=== PATIENT | female | born 1930 | race Caucasian/White ===

== ENCOUNTER 2018-10-21 08:47 | Inpatient (IN) | payer MEDICARE, OTHER ==
[2018-10-21 09:22] LABS: #Eosinphils 0.3 thou/uL (0.0-0.7); #Lymphocytes 1.5 thou/uL (1.20-3.40); #Monocytes 0.6 thou/uL (0.11-0.59); #Neutrophils 5.9 thou/uL (1.40-6.50); %Basophils 0.2 % (0.0-1.0); %Eosinophils 3.8 % (0.0-10.0); %Lymphocytes 18.4 % (21.0-51.0); %Neutrophils 70.6 % (42.0-75.0); Hemoglobin 7.7 g/dL (12.0-16.0); Mean Corpuscular HGB CONC 32.2 g/dL (32.0-36.0); Mean Corpuscular Hemoglobin 30.9 pg (27.0-31.0); Mean Corpuscular Volume 96.1 fL (78.0-98.0); Mean Platelet Volume 6.7 fL (7.4-10.4); Platelet Count 293 thou/uL (130-400); RBC Distribution Width 13.5 % (11.5-14.5); Red Blood Cell (RBC) Count 2.49 mill/uL (4.20-5.40); White Blood Cell (WBC) Count 8.3 thou/uL (4.8-10.8)
--- NOTE | 2018-10-21 09:48 | RAD ---
RADIOGRAPH CHEST 1 VIEW: Date: 10/21/2018 Time: 9:17 a.m. HISTORY: An 88-year-old female with chest pain. COMPARISON: 08/07/2014 FINDINGS: Again noted is the magnification of the cardiac shadow. Mild diffuse pulmonary vascular prominence, perhaps minimally greater than on prior study. Ectasia and tortuosity of the thoracic aorta. No fra nk pulmonary alveolar edema, consolidation, or pneumothorax. Lateral costophrenic angles are sharp. 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 IMPRESSION: 1. Mild pulmonary venous congestion. 2. No evidence of pneumonia. 3. 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 JAZMYN [] POS: TPC
[2018-10-21 09:53] LABS: ALT (SGPT) 9 U/L (8-55); AST (SGOT) 17 U/L (5-34); Albumin 2.9 g/dL (3.4-4.8); Alkaline Phosphatase 85 U/L (40-150); Anion Gap 13 mmol/L (10-20); BUN (Urea Nitrogen) 20 mg/dL (9.8-20.1); Bilirubin, Total 0.3 mg/dL (0.2-1.2); Calc. Creatinine Clearance 0 mL/min (70-130); Calcium 8.6 mg/dL (7.8-10.44); Carbon Dioxide 34 mmol/L (23-31); Chloride 95 mmol/L (98-107); Estimated GFR-MDRD 29; Globulin 3.9 g/dL (2.4-3.5); Glucose 94 mg/dL (83-110); Lipase 12 U/L (8-78); Potassium 4.1 mmol/L (3.5-5.1); Protein, Total 6.8 g/dL (6.0-8.3); Sodium 138 mmol/L (136-145)
[2018-10-21] MEDS ORDERED: Zolpidem Tartrate 5 MG TAB PO PRN (13:11)
[2018-10-21] MEDS ORDERED: Ondansetron PF 4 MG/2 ML Vial IVP PRN (13:11)
[2018-10-21] MEDS ORDERED: Acetaminophen 325 MG TAB PO PRN ×2 (13:11→17:09)
[2018-10-21 13:44] LABS: Troponin I Less than 0.010 ng/mL (< 0.028)
--- NOTE | 2018-10-21 15:28 | PDOC.EVN ---
Event Note - Event Note Event Note: H&P #[id number]
--- NOTE | 2018-10-21 16:06 | HP ---
ADMITTING COMPLAINT: Chest pain. HISTORY OF PRESENT ILLNESS: This is an 88-year-old female, who lives at a half-way facility, presented to the hospital, complaining of chest pain. The patient states that she is being treated at her rehab for nonhealing leg infections and was found to have significant chest pain, so she was brought to the hospital. The patient's first set of troponins was negative. The patient during her evaluation states that she feels better. No other associated symptoms or complaints. No alleviating or aggravating factors. The patient is seen and examined in the ER. No other issues. No family at bedside. All questions answered. REVIEW OF SYSTEMS: All systems reviewed. Pertinent positive in HPI, otherwise negative. PAST MEDICAL HISTORY: Positive for heart failure, hypertension, hyperlipidemia, obesity, sleep apnea. FAMILY HISTORY: Noncontributory. SOCIAL HISTORY: Nonsmoker and nondrinker. HOME MEDICATIONS: See MAR. PHYSICAL EXAMINATION: VITAL SIGNS: Blood pressure 141/55, pulse 74, O2 saturations 94% on room air, respiratory rate of 18, and temperature of 98.5. GENERAL: The patient is lying in bed, in no acute discomfort. HEENT: Pupils are equal, round, reactive to light and accommodation. Extraocular muscles are intact. Oral cavity is moist and pink. NECK: Supple, with mobile and nontender thyroid appreciated. CARDIOVASCULAR: Regular rate and rhythm. S1 and S2. No murmurs, rubs, or gallops appreciated. PULMONARY: Clear to auscultation bilaterally. No rales, rhonchi, or wheezing appreciated. ABDOMEN: Rotund. Positive bowel sounds. Soft, nontender, nondistended. EXTREMITIES: 2+ peripheral pulses in bilateral upper extremities, 1+ pitting edema in bilateral lower extremities. Right lower extremity in bandage was noted with cellulitis and infection. NEUROLOGIC: Cranial nerves 2 through 12 are intact. No loss of motor or sensory function. LABORATORY DATA: Reviewed. IMAGES: Reviewed. ASSESSMENT: 1. Chest pain. 2. Hypertension. 3. Hyperlipidemia. 4. Cardiomyopathy with congestive heart failure. 5. Bilateral lower extremity cellulitis. 6. Obesity. PLAN: At this point in time, we will continue her current medical plan of care. Continue antibiotics and wound care for both her feet. We will continue to trend enzymes. If enzymes are negative by tomorrow, then she can go back to the rehab. Case and plan discussed with the patient at length. She understood and agreed to this plan. Job ID: [id number]
[2018-10-21 16:41] LABS: Troponin I 0.022 ng/mL (< 0.028)
[2018-10-21] MEDS: Nicotine 14 MG PATCH TD SCH (18:40)
[2018-10-22 07:05] LABS: #Eosinphils 0.3 thou/uL (0.0-0.7); #Lymphocytes 1.8 thou/uL (1.20-3.40); #Monocytes 0.5 thou/uL (0.11-0.59); %Basophils 0.7 % (0.0-1.0); %Eosinophils 4.8 % (0.0-10.0); %Monocytes 9.4 % (0.0-10.0); %Neutrophils 53.1 % (42.0-75.0); Hemoglobin 7.1 g/dL (12.0-16.0); Mean Corpuscular HGB CONC 31.6 g/dL (32.0-36.0); Mean Corpuscular Hemoglobin 30.5 pg (27.0-31.0); Mean Corpuscular Volume 96.3 fL (78.0-98.0); Mean Platelet Volume 6.6 fL (7.4-10.4); Platelet Count 239 thou/uL (130-400); RBC Distribution Width 13.5 % (11.5-14.5); Red Blood Cell (RBC) Count 2.32 mill/uL (4.20-5.40); White Blood Cell (WBC) Count 5.6 thou/uL (4.8-10.8)
[2018-10-22 07:24] LABS: Anion Gap 11 mmol/L (10-20); BUN (Urea Nitrogen) 18 mg/dL (9.8-20.1); Calc. Creatinine Clearance 39 mL/min (70-130); Calcium 8.4 mg/dL (7.8-10.44); Carbon Dioxide 35 mmol/L (23-31); Chloride 97 mmol/L (98-107); Estimated GFR-MDRD 35; Glucose 73 mg/dL (83-110); Potassium 3.8 mmol/L (3.5-5.1); Sodium 139 mmol/L (136-145)
[2018-10-22 07:31] LABS: Troponin I 0.026 ng/mL (< 0.028)
[2018-10-22] MEDS ORDERED: Enoxaparin Sodium 40 MG/0.4 ML SYRINGE SC SCH (09:00)
[2018-10-22] MEDS: Bupropion 150 MG SR TAB PO SCH (09:16)
[2018-10-22] MEDS: Aspirin 325 MG TAB PO SCH (09:16)
[2018-10-22] MEDS: Famotidine 20 MG TAB PO SCH (09:16)
[2018-10-22] MEDS: Nicotine 14 MG PATCH TD SCH (13:24)
--- NOTE | 2018-10-22 13:47 | PDOC.HOSPP ---
- Subjective Encounter Date: 10/22/18 Encounter Time: 13:45 Subjective: Patient seen and examined, no new issues. - Objective Vital Signs & Weight: Vital Signs (12 hours) Temp Pulse Resp BP Pulse Ox 10/22/18 12:21 99.5 F 92 18 132/60 96 10/22/18 08:29 98.3 F 89 18 137/64 96 10/22/18 03:06 98.7 F 84 18 142/64 H 92 L Weight Admit Weight 205 lb 12.8 oz Weight 205 lb 12.8 oz Result Diagrams: 10/22/18 06:58 10/22/18 06:58 ROS - Medication Medications: Active Medications Generic Name Dose Route Start Last Admin Trade Name Freq PRN Reason Stop Dose Admin Aspirin 325 mg 10/22/18 09:00 10/22/18 09:16 Aspirin PO 325 mg DAILY AUBREY Administration Bupropion HCl 150 mg 10/22/18 09:00 10/22/18 09:16 Wellbutrin Sr PO 10/25/18 09:01 150 mg DAILY AUBREY Administration Enoxaparin Sodium 40 mg 10/22/18 09:00 10/22/18 09:16 Lovenox SC 40 mg 0900 AUBREY Administration Famotidine 20 mg 10/22/18 09:00 10/22/18 09:16 Pepcid PO 20 mg DAILY AUBREY Administration Nicotine 14 mg 10/21/18 14:00 10/22/18 13:24 Nicoderm Patch TD Not Given Q24HR AUBREY - Exam NAD, awake alert Eye: PERRL, anicteric sclera ENT: normocephalic atraumatic, no oropharyngeal lesions Neck: supple, symmetric, no JVD, no thyromegaly Heart: RRR, no murmur, no gallops, no rubs Respiratory: no wheezes, no rales, no ronchi Gastrointestinal: soft, non-tender, non-distended Hosp A/P (1) Anemia Code(s): D64.9 - ANEMIA, UNSPECIFIED Status: Acute (2) Cellulitis and abscess of leg Code(s): L02.419 - CUTANEOUS ABSCESS OF LIMB, UNSPECIFIED; L03.119 - CELLULITIS OF UNSPECIFIED PART OF LIMB Status: Acute - Plan - check iron levels - labs in AM - PT/OT pending - iron levels pending - case and plan d/w patient and son in law at length, they understood and agreed with this plan.
[2018-10-22] MEDS: Cephalexin 250 MG CAP PO SCH (20:20)
[2018-10-22] MEDS: Bisacodyl 5 MG TAB PO SCH (20:30)
[2018-10-22] MEDS ORDERED: rOPINIRole HCl 2 MG TAB PO SCH (20:45)
[2018-10-23] MEDS: HYDROcodone/Acetaminophen 5/325 mg Tablet PO PRN ×3 (03:38→17:41)
[2018-10-23 05:08] LABS: #Eosinphils 0.2 thou/uL (0.0-0.7); #Lymphocytes 1.6 thou/uL (1.20-3.40); #Monocytes 0.5 thou/uL (0.11-0.59); #Neutrophils 3.9 thou/uL (1.40-6.50); %Basophils 0.5 % (0.0-1.0); %Lymphocytes 25.1 % (21.0-51.0); %Monocytes 8.3 % (0.0-10.0); %Neutrophils 62.2 % (42.0-75.0); Hemoglobin 7.4 g/dL (12.0-16.0); Mean Corpuscular HGB CONC 31.9 g/dL (32.0-36.0); Mean Corpuscular Hemoglobin 30.7 pg (27.0-31.0); Mean Corpuscular Volume 96.5 fL (78.0-98.0); Platelet Count 269 thou/uL (130-400); RBC Distribution Width 13.7 % (11.5-14.5); Red Blood Cell (RBC) Count 2.39 mill/uL (4.20-5.40); White Blood Cell (WBC) Count 6.2 thou/uL (4.8-10.8)
[2018-10-23] MEDS: Levothyroxine Sodium 25 MCG TAB PO SCH (05:11)
[2018-10-23 05:33] LABS: Anion Gap 12 mmol/L (10-20); BUN (Urea Nitrogen) 16 mg/dL (9.8-20.1); Calc. Creatinine Clearance 44 mL/min (70-130); Calcium 8.4 mg/dL (7.8-10.44); Carbon Dioxide 33 mmol/L (23-31); Chloride 98 mmol/L (98-107); Estimated GFR-MDRD 40; Glucose 94 mg/dL (83-110); Iron 21 ug/dL (50-170); Iron Binding Capacity, Total 211 mcg/dL (265-497); Potassium 3.5 mmol/L (3.5-5.1); Sodium 139 mmol/L (136-145)
[2018-10-23] MEDS ORDERED: Metamucil PACK PO PRN (08:45)
[2018-10-23] MEDS ORDERED: Iron, Sodium Ferric Gluconate 250 MG in Sodium Chloride 0.9% 100 ML IVPB SCH (09:00)
[2018-10-23] MEDS: Iron Sucrose Complex 200 MG in Sodium Chloride 0.9% 250 ML 250 ML IVPB SCH (09:59)
[2018-10-23] MEDS: Famotidine 20 MG TAB PO SCH (10:00)
[2018-10-23] MEDS: Cephalexin 250 MG CAP PO SCH ×2 (10:00→19:54)
[2018-10-23] MEDS: Bupropion 150 MG SR TAB PO SCH (10:00)
[2018-10-23] MEDS: Aspirin 325 MG TAB PO SCH (10:00)
[2018-10-23] MEDS: Enoxaparin Sodium 30 MG/0.3 ML SYRINGE SC SCH (10:00)
[2018-10-23] MEDS ORDERED: Non-Formulary Item 1 EACH (Diphenhydramine Hcl [Diphenhydramine Hcl] 25 MG) PO PRN (10:25)
[2018-10-23] MEDS ORDERED: Simethicone Chewable 80 MG TAB PO PRN (10:25)
[2018-10-23] MEDS ORDERED: FLUCONAZOLE 150 MG PO SCH (10:30)
--- NOTE | 2018-10-23 10:31 | PDOC.HOSPP ---
- Subjective Encounter Date: 10/23/18 Encounter Time: 10:29 Subjective: Patient seen and examined, no new issues. - Objective Vital Signs & Weight: Vital Signs (12 hours) Temp Pulse Resp BP Pulse Ox 10/23/18 07:02 98.8 F 99 18 143/63 H 94 L 10/23/18 03:33 98.5 F 116 H 20 174/76 H 94 L Weight Admit Weight 205 lb 12.8 oz Weight 205 lb 12.8 oz I&O: 10/22/18 10/23/18 10/24/18 06:59 06:59 06:59 Intake Total 1390 Output Total 1200 Balance 190 Result Diagrams: 10/23/18 04:17 10/23/18 04:17 ROS - Medication Medications: Active Medications Generic Name Dose Route Start Last Admin Trade Name Freq PRN Reason Stop Dose Admin Hydrocodone Bitart/Acetaminophen 1 tab 10/21/18 13:11 10/23/18 03:38 [place] 5/325 PO 1 tab Q4H PRN Administration Moderate Pain (4-6) Bisacodyl 10 mg 10/22/18 21:00 10/22/18 20:30 Dulcolax PO 10 mg QPM AUBREY Administration Bupropion HCl 150 mg 10/22/18 09:00 10/23/18 10:00 Wellbutrin Sr PO 10/25/18 09:01 150 mg DAILY AUBREY Administration Cephalexin 500 mg 10/22/18 21:00 10/23/18 10:00 Keflex PO 500 mg Q12HR AUBREY Administration Enoxaparin Sodium 30 mg 10/23/18 09:00 10/23/18 10:00 Lovenox SC 30 mg 0900 AUBREY Administration Famotidine 20 mg 10/22/18 09:00 10/23/18 10:00 Pepcid PO 20 mg DAILY AUBREY Administration Iron Sucrose 200 mg/ Sodium 260 mls @ 130 mls/hr 10/23/18 10:00 10/23/18 09: 59 Chloride IVPB 10/24/18 11:59 260 mls 1000 AUBREY Administration Levothyroxine Sodium 25 mcg 10/23/18 06:00 10/23/18 05:11 Synthroid PO 25 mcg 0600 AUBREY Administration Nicotine 14 mg 10/21/18 14:00 10/22/18 13:24 Nicoderm Patch TD Not Given Q24HR AUBREY Quetiapine Fumarate 50 mg 10/22/18 21:00 10/22/18 20:58 Seroquel PO Not Given HS AUBREY Zolpidem Tartrate 5 mg 10/21/18 13:11 10/22/18 20:23 Ambien PO 5 mg HSPRN PRN Administration Insomnia - Exam NAD, awake alert Eye: PERRL, anicteric sclera ENT: normocephalic atraumatic, no oropharyngeal lesions Neck: supple, symmetric, no JVD, no thyromegaly Heart: no murmur, no gallops, no rubs, irregular Respiratory: CTAB, no wheezes, no rales, no ronchi Gastrointestinal: soft, non-tender, non-distended, normal bowel sounds Extremities: 2+ LE edema Extremeties - other findings: erythema B/L LE, hypertrophic skins Hosp A/P (1) Anemia Code(s): D64.9 - ANEMIA, UNSPECIFIED Status: Acute (2) Cellulitis and abscess of leg Code(s): L02.419 - CUTANEOUS ABSCESS OF LIMB, UNSPECIFIED; L03.119 - CELLULITIS OF UNSPECIFIED PART OF LIMB Status: Acute - Plan - will do IV iron 2 doses, q24hrs - started also on feosol + metamucil - occult blood pending - PT/OT pending - case and plan d/w patient and son in law at length, they understood and agreed with this plan.
[2018-10-23] MEDS ORDERED: Amlodipine 5 MG TAB PO SCH (10:45)
[2018-10-23] MEDS ORDERED: Ferrous Sulfate 325 MG TAB PO SCH (10:45)
[2018-10-23] MEDS ORDERED: Aspirin Chewable 81 MG TAB PO SCH (10:45)
[2018-10-23] MEDS ORDERED: Docusate 100 MG CAP PO SCH (10:45)
[2018-10-23] MEDS ORDERED: Metoprolol Tartrate 50 MG TAB PO SCH (10:45)
[2018-10-23] MEDS ORDERED: Furosemide 80 MG TAB PO SCH (11:15)
[2018-10-23] MEDS: Nicotine 14 MG PATCH TD SCH (13:30)
[2018-10-23] MEDS ORDERED: rOPINIRole HCl 2 MG TAB PO SCH (19:30)
[2018-10-23] MEDS: Bisacodyl 5 MG TAB PO SCH (19:53)
[2018-10-23] MEDS: Metoprolol Tartrate 50 MG TAB PO SCH (19:54)
[2018-10-23] MEDS: Docusate 100 MG CAP PO SCH (19:54)
[2018-10-23] MEDS: Latanoprost 0.005% Ophth Soln 2.5 ml Bottle EA EYE SCH (19:56)
[2018-10-24] MEDS: HYDROcodone/Acetaminophen 5/325 mg Tablet PO PRN ×4 (02:04→20:53)
[2018-10-24] MEDS: traMADol HCl 50 MG TAB PO PRN ×2 (02:16→14:18)
[2018-10-24 05:12] LABS: #Eosinphils 0.4 thou/uL (0.0-0.7); #Lymphocytes 1.2 thou/uL (1.20-3.40); #Monocytes 0.5 thou/uL (0.11-0.59); #Neutrophils 3.7 thou/uL (1.40-6.50); %Basophils 0.2 % (0.0-1.0); %Eosinophils 6.4 % (0.0-10.0); %Lymphocytes 20.5 % (21.0-51.0); %Monocytes 9.2 % (0.0-10.0); %Neutrophils 63.7 % (42.0-75.0); Hemoglobin 7.9 g/dL (12.0-16.0); Mean Corpuscular HGB CONC 32.7 g/dL (32.0-36.0); Mean Corpuscular Hemoglobin 31.6 pg (27.0-31.0); Mean Corpuscular Volume 96.7 fL (78.0-98.0); Mean Platelet Volume 6.8 fL (7.4-10.4); Platelet Count 240 thou/uL (130-400); RBC Distribution Width 13.8 % (11.5-14.5); Red Blood Cell (RBC) Count 2.49 mill/uL (4.20-5.40); White Blood Cell (WBC) Count 5.9 thou/uL (4.8-10.8)
[2018-10-24] MEDS: Levothyroxine Sodium 25 MCG TAB PO SCH (05:27)
[2018-10-24 05:30] LABS: Anion Gap 12 mmol/L (10-20); BUN (Urea Nitrogen) 13 mg/dL (9.8-20.1); Calc. Creatinine Clearance 48 mL/min (70-130); Calcium 8.6 mg/dL (7.8-10.44); Carbon Dioxide 31 mmol/L (23-31); Chloride 98 mmol/L (98-107); Estimated GFR-MDRD 43; Glucose 75 mg/dL (83-110); Potassium 3.5 mmol/L (3.5-5.1); Sodium 137 mmol/L (136-145)
[2018-10-24] MEDS: Famotidine 20 MG TAB PO SCH (08:44)
[2018-10-24] MEDS: Ferrous Sulfate 325 MG TAB PO SCH (08:44)
[2018-10-24] MEDS: Furosemide 80 MG TAB PO SCH (08:44)
[2018-10-24] MEDS: Metoprolol Tartrate 50 MG TAB PO SCH ×2 (08:44→20:53)
[2018-10-24] MEDS: Cephalexin 250 MG CAP PO SCH ×2 (08:44→20:52)
[2018-10-24] MEDS: Bupropion 150 MG SR TAB PO SCH (08:44)
[2018-10-24] MEDS: Aspirin Chewable 81 MG TAB PO SCH (08:44)
[2018-10-24] MEDS: Enoxaparin Sodium 30 MG/0.3 ML SYRINGE SC SCH (08:45)
[2018-10-24] MEDS: Docusate 100 MG CAP PO SCH ×2 (08:45→20:52)
[2018-10-24] MEDS ORDERED: Amlodipine 5 MG TAB PO SCH (09:00)
[2018-10-24] MEDS ORDERED: Aspirin Chewable 81 MG TAB PO SCH (09:00)
[2018-10-24] MEDS: Iron Sucrose Complex 200 MG in Sodium Chloride 0.9% 250 ML 250 ML IVPB SCH (11:10)
--- NOTE | 2018-10-24 11:50 | PDOC.HOSPP ---
- Subjective Encounter Date: 10/24/18 Encounter Time: 11:30 Subjective: f/u for LE edema and chronic venous stasis with dermatitis and cellulitis. States R foot is swollen and painful x 4 weeks after blunt force injury. Receiving IV Iron infusion currently. - Objective Vital Signs & Weight: Vital Signs (12 hours) Temp Pulse Resp BP BP Pulse Ox 10/24/18 11:08 98.8 F 67 18 134/67 95 10/24/18 07:17 98.3 F 79 18 135/60 94 L 10/24/18 02:58 98.0 F 86 18 147/70 H 92 L Weight Admit Weight 205 lb 12.8 oz Weight 205 lb 12.8 oz I&O: 10/23/18 10/24/18 10/25/18 06:59 06:59 06:59 Intake Total 1390 1600 Output Total 1200 1950 Balance 190 -350 Result Diagrams: 10/24/18 05:00 10/24/18 05:00 Additional Labs: Microbiology 10/24/18 08:54 Stool Stool Occult Blood (GIANCARLO) - Final Laboratory Tests 10/21/18 10/21/18 10/22/18 09:08 09:08 06:58 Hgb 7.7 L Creatinine 1.43 H Iron TIBC % Saturation Ferritin B-Natriuretic Peptide 213.0 H 10/22/18 10/23/18 10/23/18 06:58 04:17 04:17 Hgb 7.1 L Creatinine 1.27 H Iron 21 L TIBC 211 L % Saturation 10 L Ferritin 300.85 H B-Natriuretic Peptide 10/23/18 04:17 Hgb 7.4 L Creatinine Iron TIBC % Saturation Ferritin B-Natriuretic Peptide Radiology Reviewed by me: Yes (EF - 55-60%, mod elevated pulm pressure, poor study) EKG Reviewed by me: Yes (Tele - SR) ROS - Medication Medications: Active Medications Generic Name Dose Route Start Last Admin Trade Name Freq PRN Reason Stop Dose Admin Hydrocodone Bitart/Acetaminophen 1 tab 10/21/18 13:11 10/24/18 08:52 [place] 5/325 PO 1 tab Q4H PRN Administration Moderate Pain (4-6) Aspirin 81 mg 10/24/18 09:00 10/24/18 08:44 Aspirin Chewable PO 81 mg QAM AUBREY Administration Bisacodyl 10 mg 10/22/18 21:00 10/23/18 19:53 Dulcolax PO 10 mg QPM AUBREY Administration Bupropion HCl 150 mg 10/22/18 09:00 10/24/18 08:44 Wellbutrin Sr PO 10/25/18 09:01 150 mg DAILY AUBREY Administration Cephalexin 500 mg 10/22/18 21:00 10/24/18 08:44 Keflex PO 500 mg Q12HR AUBREY Administration Docusate Sodium 100 mg 10/23/18 21:00 10/24/18 08:45 Colace PO 100 mg BID AUBREY Administration Enoxaparin Sodium 30 mg 10/23/18 09:00 10/24/18 08:45 Lovenox SC 30 mg 0900 [facility] Administration Famotidine 20 mg 10/22/18 09:00 10/24/18 08:44 Pepcid PO 20 mg DAILY AUBREY Administration Ferrous Sulfate 325 mg 10/24/18 08:00 10/24/18 08:44 Feosol PO 325 mg QAM-WM [facility] Administration Furosemide 80 mg 10/24/18 09:00 10/24/18 08:44 Lasix PO 80 mg DAILY [facility] Administration Iron Sucrose 200 mg/ Sodium 260 mls @ 130 mls/hr 10/23/18 10:00 10/24/18 11: 10 Chloride IVPB 10/24/18 11:59 260 mls 1000 [facility] Administration Latanoprost 1 drop 10/23/18 21:00 10/23/18 19:56 Xalatan 0.005% Ophth Soln EA EYE 1 drop HS AUBREY Administration Levothyroxine Sodium 25 mcg 10/23/18 06:00 10/24/18 05:27 Synthroid PO 25 mcg 0600 [facility] Administration Metoprolol Tartrate 50 mg 10/23/18 21:00 10/24/18 08:44 Lopressor PO 50 mg BID AUBREY Administration Nicotine 14 mg 10/21/18 14:00 10/23/18 13:30 Nicoderm Patch TD Not Given Q24HR [facility] Pantoprazole Sodium 40 mg 10/24/18 09:00 10/24/18 08:45 Protonix PO 40 mg DAILY AUBREY Administration Psyllium Hydrophilic Mucilloid 1 pk 10/23/18 08:45 10/23/18 15:23 Metamucil PO 1 pk DAILY PRN Administration constipation Quetiapine Fumarate 50 mg 10/22/18 21:00 10/23/18 19:54 Seroquel PO 50 mg HS AUBREY Administration Raloxifene HCl 60 mg 10/24/18 09:00 10/24/18 08:44 Evista PO 60 mg DAILY AUBREY Administration Tramadol HCl 50 mg 10/23/18 10:25 10/24/18 02:16 Ultram PO 50 mg TID PRN Administration Pain Zolpidem Tartrate 5 mg 10/21/18 13:11 10/22/18 20:23 Ambien PO 5 mg HSPRN PRN Administration Insomnia - Exam NAD, awake alert Eye: PERRL, anicteric sclera ENT: normocephalic atraumatic, no oropharyngeal lesions Neck: supple, symmetric, no JVD, no thyromegaly, no lymphadenopathy Heart: RRR, no murmur, no gallops, no rubs, normal peripheral pulses Respiratory: CTAB, no wheezes, no rales, no ronchi Gastrointestinal: soft, non-tender, non-distended, normal bowel sounds Extremities: 2+ LE edema Extremeties - other findings: prominent LE edema bilat, R foot with dark discoloration, skin peeling Neurological: CN's grossly intact, normal sensation to touch, no new deficit Musculoskeletal: generalized weakness Psychiatric: normal affect, normal behavior, A&O x 3 Hosp A/P (1) Leg edema Code(s): R60.0 - LOCALIZED EDEMA Status: Chronic Plan: Suspect multifactorial including iatrogenic influence from Norvasc, d/c Norvasc (2) Iron deficiency anemia Code(s): D50.9 - IRON DEFICIENCY ANEMIA, UNSPECIFIED Status: Chronic Qualifiers: Iron deficiency anemia type: inadequate dietary iron intake Qualified Code( s): D50.8 - Other iron deficiency anemias Plan: Continue IV Iron infusion today, continue Feosol (3) Cellulitis and abscess of leg Code(s): L02.419 - CUTANEOUS ABSCESS OF LIMB, UNSPECIFIED; L03.119 - CELLULITIS OF UNSPECIFIED PART OF LIMB Status: Acute Plan: Suspicion for abscess R foot, check MRI today, continue Keflex, await MRI results, may need surgical evaluation (4) Physical deconditioning Code(s): R53.81 - OTHER MALAISE Status: Chronic Plan: PT for mobilization - Plan continue antibiotics, PT/OT, social work case manager Stable overall Continue WCT for local care of chronic LE ulcers D/C Norvasc due to LE edema Lasix 80mg daily MRI of R foot to r/o abscess Likely to SNF in 24h
[2018-10-24] MEDS: Nicotine 14 MG PATCH TD SCH (13:10)
[2018-10-24] MEDS: hydrALAZINE 25 MG TAB PO SCH ×2 (14:18→20:51)
[2018-10-24] MEDS: Bisacodyl 5 MG TAB PO SCH (20:51)
[2018-10-24] MEDS: diphenhydrAMINE 25 MG CAP PO PRN (20:51)
[2018-10-24] MEDS: Latanoprost 0.005% Ophth Soln 2.5 ml Bottle EA EYE SCH (20:54)
[2018-10-25] MEDS: Levothyroxine Sodium 25 MCG TAB PO SCH (05:20)
[2018-10-25] MEDS: HYDROcodone/Acetaminophen 5/325 mg Tablet PO PRN ×3 (07:42→20:34)
[2018-10-25] MEDS ORDERED: rOPINIRole HCl 2 MG TAB PO SCH (09:00)
[2018-10-25] MEDS: Bupropion 150 MG SR TAB PO SCH (09:04)
[2018-10-25] MEDS: Aspirin Chewable 81 MG TAB PO SCH (09:04)
[2018-10-25] MEDS: rOPINIRole HCl 2 MG TAB PO SCH ×2 (09:04→20:25)
[2018-10-25] MEDS: hydrALAZINE 25 MG TAB PO SCH ×3 (09:04→20:25)
[2018-10-25] MEDS: Ferrous Sulfate 325 MG TAB PO SCH (09:04)
[2018-10-25] MEDS: Docusate 100 MG CAP PO SCH ×2 (09:04→20:28)
[2018-10-25] MEDS: Cephalexin 250 MG CAP PO SCH (09:05)
[2018-10-25] MEDS: Enoxaparin Sodium 30 MG/0.3 ML SYRINGE SC SCH (09:06)
[2018-10-25] MEDS: Metoprolol Tartrate 50 MG TAB PO SCH ×2 (09:06→20:25)
[2018-10-25] MEDS: Famotidine 20 MG TAB PO SCH (09:06)
[2018-10-25] MEDS: Furosemide 80 MG TAB PO SCH (09:06)
--- NOTE | 2018-10-25 09:52 | MRI ---
Exam: Right foot MRI with and without IV contrast: HISTORY: Soft tissue swelling and soreness over the top aspect of the foot with swelling and redness with clin ical concern for abscess tightness. FINDINGS: Multiplanar multisequence MRI examination of the foot is performed. There is extensive soft tissue sw elling particularly over the dorsal aspect of the foot with some prominent enhancement evidence for extensive cellulitis. In addition there is an irregularly-shaped fluid collection with an enhancing w all over the mid metatarsal region particularly the second through fourth toes overall size of which measures 1.2 x 3.4 x 4.2 cm which certainly could represent an abscess or other irregular fluid collection. No evidence for osteomyelitis. IMPRESSION: Extensive dorsal soft tissue swelling with abnormal enhancement evidence for extensive cellulitis. Ir regular shaped fluid collection in the dorsal soft tissues of the foot which could represent an abscess. No evidence for osteomyelitis.
--- NOTE | 2018-10-25 11:06 | PDOC.HOSPP ---
- Subjective Encounter Date: 10/25/18 Encounter Time: 10:45 Subjective: f/u for LE edema, ? R foot abscess and chronic venous stasis. MRI of R foot showing potential abscess. - Objective Vital Signs & Weight: Vital Signs (12 hours) Temp Pulse Resp BP Pulse Ox 10/25/18 09:04 76 10/25/18 07:06 98.1 F 76 18 148/67 H 97 10/25/18 04:00 97.5 F L 65 20 126/60 95 Weight Admit Weight 205 lb 12.8 oz Weight 205 lb 12.8 oz I&O: 10/24/18 10/25/18 10/26/18 06:59 06:59 06:59 Intake Total 1600 1630 Output Total 1950 2375 Balance -350 -745 Result Diagrams: 10/24/18 05:00 10/24/18 05:00 Additional Labs: Microbiology 10/24/18 08:54 Stool Stool Occult Blood (GIANCARLO) - Final Laboratory Tests 10/21/18 10/21/18 10/22/18 09:08 09:08 06:58 Hgb 7.7 L Creatinine 1.43 H Iron TIBC % Saturation Ferritin B-Natriuretic Peptide 213.0 H 10/22/18 10/23/18 10/23/18 06:58 04:17 04:17 Hgb 7.1 L Creatinine 1.27 H Iron 21 L TIBC 211 L % Saturation 10 L Ferritin 300.85 H B-Natriuretic Peptide 10/23/18 04:17 Hgb 7.4 L Creatinine Iron TIBC % Saturation Ferritin B-Natriuretic Peptide Radiology Reviewed by me: Yes (MRI R foot - ? abscess dorsum of foot) EKG Reviewed by me: Yes (Tele - SR) Hospitalist ROS - Medication Medications: Active Medications Generic Name Dose Route Start Last Admin Trade Name Freq PRN Reason Stop Dose Admin Hydrocodone Bitart/Acetaminophen 1 tab 10/21/18 13:11 10/25/18 07:42 [place] 5/325 PO 1 tab Q4H PRN Administration Moderate Pain (4-6) Aspirin 81 mg 10/24/18 09:00 10/25/18 09:04 Aspirin Chewable PO 81 mg QAM AUBREY Administration Bisacodyl 10 mg 10/22/18 21:00 10/24/18 20:51 Dulcolax PO 10 mg QPM AUBREY Administration Cephalexin 500 mg 10/22/18 21:00 10/25/18 09:05 Keflex PO 500 mg Q12HR AUBREY Administration Diphenhydramine HCl 25 mg 10/23/18 10:32 10/24/18 20:51 Benadryl PO 25 mg HSPRN PRN Administration INSOMNIA Docusate Sodium 100 mg 10/23/18 21:00 10/25/18 09:04 Colace PO 100 mg BID AUBREY Administration Enoxaparin Sodium 30 mg 10/23/18 09:00 10/25/18 09:06 Lovenox SC 30 mg 0900 AUBREY Administration Famotidine 20 mg 10/22/18 09:00 10/25/18 09:06 Pepcid PO Not Given DAILY AUBREY Ferrous Sulfate 325 mg 10/24/18 08:00 10/25/18 09:04 Feosol PO 325 mg QAM-WM AUBREY Administration Furosemide 80 mg 10/24/18 09:00 10/25/18 09:06 Lasix PO 80 mg DAILY AUBREY Administration Hydralazine HCl 25 mg 10/24/18 15:00 10/25/18 09:04 Apresoline PO 25 mg TID AUBREY Administration Latanoprost 1 drop 10/23/18 21:00 10/24/18 20:54 Xalatan 0.005% Ophth Soln EA EYE 1 drop HS AUBREY Administration Levothyroxine Sodium 25 mcg 10/23/18 06:00 10/25/18 05:20 Synthroid PO 25 mcg 0600 AUBREY Administration Metoprolol Tartrate 50 mg 10/23/18 21:00 10/25/18 09:06 Lopressor PO 50 mg BID AUBREY Administration Nicotine 14 mg 10/21/18 14:00 10/24/18 13:10 Nicoderm Patch TD Not Given Q24HR AUBREY Pantoprazole Sodium 40 mg 10/24/18 09:00 10/25/18 09:06 Protonix PO 40 mg DAILY AUBREY Administration Psyllium Hydrophilic Mucilloid 1 pk 10/23/18 08:45 10/23/18 15:23 Metamucil PO 1 pk DAILY PRN Administration constipation Quetiapine Fumarate 50 mg 10/22/18 21:00 10/24/18 20:52 Seroquel PO 50 mg HS AUBREY Administration Raloxifene HCl 60 mg 10/24/18 09:00 10/25/18 09:04 Evista PO 60 mg DAILY AUBREY Administration Ropinirole HCl 4 mg 10/25/18 09:00 10/25/18 09:04 Requip PO 4 mg BID AUBREY Administration Ropinirole HCl 4 mg 10/25/18 09:00 10/25/18 09:06 Requip PO Not Given BID AUBREY Tramadol HCl 50 mg 10/23/18 10:25 10/24/18 14:18 Ultram PO 50 mg TID PRN Administration Pain Zolpidem Tartrate 5 mg 10/21/18 13:11 10/22/18 20:23 Ambien PO 5 mg HSPRN PRN Administration Insomnia - Exam General Appearance: NAD, awake alert Eye: PERRL, anicteric sclera ENT: normocephalic atraumatic, no oropharyngeal lesions Neck: supple, symmetric, no JVD, no thyromegaly, no lymphadenopathy Heart: RRR, no murmur, no gallops, no rubs, normal peripheral pulses Respiratory: CTAB, no wheezes, no rales, no ronchi Gastrointestinal: soft, non-tender, non-distended, normal bowel sounds Extremities: 2+ LE edema Extremeties - other findings: R foot with edema, discoloration, skin peeling Neurological: CN's grossly intact, no focal deficits, no new deficit Musculoskeletal: generalized weakness Psychiatric: normal affect, normal behavior, A&O x 3 Hosp A/P (1) Leg edema Code(s): R60.0 - LOCALIZED EDEMA Status: Chronic (2) Iron deficiency anemia Code(s): D50.9 - IRON DEFICIENCY ANEMIA, UNSPECIFIED Status: Chronic Qualifiers: Iron deficiency anemia type: inadequate dietary iron intake Qualified Code( s): D50.8 - Other iron deficiency anemias (3) Cellulitis and abscess of leg Code(s): L02.419 - CUTANEOUS ABSCESS OF LIMB, UNSPECIFIED; L03.119 - CELLULITIS OF UNSPECIFIED PART OF LIMB Status: Acute (4) Physical deconditioning Code(s): R53.81 - OTHER MALAISE Status: Chronic - Plan PT/OT, child protective services social worker, out of bed/ambulate Stable overall Continue WCT for local care of chronic LE ulcers D/C Norvasc due to LE edema Lasix 80mg daily Consult Gen Surgery regarding potential R foot abscess Start Vancomycin/Zosyn AM lab: BMP, CBC SNF options per case mgmt
[2018-10-25] MEDS: Piperacillin/Tazobactam 3.375 GM in Sodium Chloride 0.9% 100 ML IVPB SCH ×2 (12:33→17:43)
[2018-10-25] MEDS: traMADol HCl 50 MG TAB PO PRN (13:38)
[2018-10-25] MEDS: Vancomycin HCl 1 GM in Premix Bag 1 BAG IVPB SCH (13:39)
[2018-10-25] MEDS: Nicotine 14 MG PATCH TD SCH (13:47)
--- NOTE | 2018-10-25 15:21 | CON ---
DATE OF CONSULTATION: HISTORY OF PRESENT ILLNESS: Aga Bravo is an 88-year-old female, admitted on 10/21/2018 to hospitalist service from the emergency room. The patient was admitted for chest pain. She states on September 19, she had dropped something on her right foot. She has had pain in that right foot since. The patient had an MRI of her right foot demonstrating some soft tissue swelling, perhaps a small fluid collection. I have been then asked to see her regarding this. The patient reports that the pain in her right foot has markedly improved. She has not had any fever. Her white count is normal. She has history of chronic lymphedema and wears lymphedema stockings, but cannot get these on. Her ambulation is limited by her bad knees. She tries to elevate her legs during the day several times to diminish her edema and she takes diuretics. PHYSICAL EXAMINATION: VITAL SIGNS: Temperature 97.6, heart rate 66, and blood pressure 149/65. LUNGS: Clear to auscultation. CARDIAC: Regular rate and rhythm without murmur or gallop. ABDOMEN: Soft. Lymphedema in bilateral extremities to the knee. She has flaky skin on both feet and legs. She has some swelling of the dorsum of both feet, perhaps slightly more pronounced on the right. There is no evidence of cellulitis. There is no fluctuance. There are some mild chronic inflammatory changes over the right foot indicative of recent injury, probably resolving hematoma. She has palpable pedal pulses. ASSESSMENT AND PLAN: Trauma to the right foot, probably representing old hematoma, which is resolving. I do not think there is any indication for incision and drainage. At this point, this is resolving, and further intervention is not warranted, and I will see her on an as needed basis. She should continue to elevate her legs above her heart during the day several times a day to minimize her edema. She should wear some compression, and if she cannot wear her lymphedema stocking, she could wear Niels wraps, place foot to knee in a graduated compression fashion. I will see her as needed. Please call if necessary. Job ID: [id number]
[2018-10-25] MEDS: Latanoprost 0.005% Ophth Soln 2.5 ml Bottle EA EYE SCH (20:27)
[2018-10-25] MEDS: Bisacodyl 5 MG TAB PO SCH (20:28)
[2018-10-26] MEDS: Piperacillin/Tazobactam 3.375 GM in Sodium Chloride 0.9% 100 ML IVPB SCH ×4 (00:05→18:09)
[2018-10-26] MEDS: Vancomycin HCl 1 GM in Premix Bag 1 BAG IVPB SCH ×2 (01:03→13:53)
[2018-10-26] MEDS: HYDROcodone/Acetaminophen 5/325 mg Tablet PO PRN ×3 (01:55→20:38)
[2018-10-26] MEDS: diphenhydrAMINE 25 MG CAP PO PRN ×2 (02:43→20:45)
[2018-10-26 05:23] LABS: Band 4 % (5-11); Hemoglobin 7.4 g/dL (12.0-16.0); Hypochromia SLIGHT = 6-15 cells (100X) (0-5/hpf); Lymphocytes 17 % (21-51); MDiff Complete? YES; Mean Corpuscular HGB CONC 32.2 g/dL (32.0-36.0); Mean Corpuscular Hemoglobin 30.6 pg (27.0-31.0); Mean Platelet Volume 6.9 fL (7.4-10.4); Monocytes 2 % (0-10); Neutrophil 77 % (42-75); Platelet Count 242 thou/uL (130-400); Platelet Morphology Comment Appears Adequate; RBC Distribution Width 13.6 % (11.5-14.5); Red Blood Cell (RBC) Count 2.41 mill/uL (4.20-5.40); White Blood Cell (WBC) Count 4.7 thou/uL (4.8-10.8)
[2018-10-26] MEDS: Levothyroxine Sodium 25 MCG TAB PO SCH (05:25)
[2018-10-26 05:27] LABS: Anion Gap 15 mmol/L (10-20); BUN (Urea Nitrogen) 14 mg/dL (9.8-20.1); Calc. Creatinine Clearance 42 mL/min (70-130); Calcium 8.3 mg/dL (7.8-10.44); Carbon Dioxide 29 mmol/L (23-31); Chloride 97 mmol/L (98-107); Estimated GFR-MDRD 37; Glucose 70 mg/dL (83-110); Potassium 3.5 mmol/L (3.5-5.1); Sodium 137 mmol/L (136-145)
[2018-10-26] MEDS: Enoxaparin Sodium 30 MG/0.3 ML SYRINGE SC SCH (09:10)
[2018-10-26] MEDS: Famotidine 20 MG TAB PO SCH (09:10)
[2018-10-26] MEDS: Ferrous Sulfate 325 MG TAB PO SCH (09:11)
[2018-10-26] MEDS: Metoprolol Tartrate 50 MG TAB PO SCH ×2 (09:11→20:29)
[2018-10-26] MEDS: Furosemide 80 MG TAB PO SCH (09:12)
[2018-10-26] MEDS: rOPINIRole HCl 2 MG TAB PO SCH ×2 (09:12→20:28)
[2018-10-26] MEDS: Docusate 100 MG CAP PO SCH ×2 (09:13→20:28)
[2018-10-26] MEDS: Aspirin Chewable 81 MG TAB PO SCH (09:15)
[2018-10-26] MEDS: hydrALAZINE 25 MG TAB PO SCH ×3 (09:16→20:29)
[2018-10-26 12:34] LABS: Vancomycin, Trough 23.1 ug/mL
[2018-10-26] MEDS ORDERED: VANCOMYCIN IVPB PRN (14:01)
[2018-10-26] MEDS: Vancomycin HCl 1.5 GM in Sodium Chloride 0.9% 250 ML 300 ML IVPB SCH (14:42)
[2018-10-26] MEDS: Nicotine 14 MG PATCH TD SCH (14:57)
--- NOTE | 2018-10-26 15:39 | PQF ---
CLINICAL DOCUMENTATION IMPROVEMENT CLARIFICATION FORM: ICD-10 Updated PLEASE DO AN ADDENDUM TO THE PROGRESS NOTE WITH ANY DOCUMENTATION UPDATES OR ADDITIONS AND CARRY THROUGH TO DC SUMMARY. THANK YOU. DATE: 10/24/2018; 10/27/2018 ATTN: Dr. Kirkpatrick Please exercise your independent, professional judgment in responding to the clarification form. Clinical indicators are provided on the bottom of this form for your review Please check appropriate box(s): HEART FAILURE: A. TYPE: [ ] Systolic / HFrEF [ ] Diastolic / HFpEF [ ] Combined Systolic / Diastolic B. ACUITY [ ] Acute [ ] Acute on Chronic [ ] Chronic [ x ] Other diagnosis __Venous insufficiency, lymphedema, medication effect ____ [ ] Unable to determine In addition, please specify: Present on Admission (POA): [ x ] Yes [ ] No [ ] Unable to determine For continuity of documentation, please document condition throughout progress notes and discharge summary. Thank You. CLINICAL INDICATORS - SIGNS / SYMPTOMS / LABS H&P 10/21: Assessment: Cardiomyopathy with congestive heart failure. Pn 10/24: Leg edema. Chronic. Suspect multifactorial including iatrogenic influence from Norvasc, d/c Norvasc. LAB 10/21: BNP 213.0 10/22 ECHO: LVEF estimated at 55-60% RISKS: H&P 10/21: PMH: Positive for heart failure, HTN. TREATMENT: Order 10/21: Telemetry PN 10/24: D/C Norvasc due to LE edema. Thank you, Bety (This form is maintained as a part of the permanent medical record) 2014 [employer]. All Rights Reserved Bety Mendoza RN, BSN [email or web address] Office: [phone] [facility]
--- NOTE | 2018-10-26 18:14 | PDOC.HOSPP ---
- Subjective Encounter Date: 10/26/18 Encounter Time: 18:10 Subjective: f/u for LE edema and R foot trauma with hematoma. No surgical intervention to R foot recommended. Feels ok overall but still has edema to LE's. - Objective Vital Signs & Weight: Vital Signs (12 hours) Temp Pulse Pulse Pulse Resp BP BP 10/26/18 16:14 60 10/26/18 15:52 97.5 F L 60 20 10/26/18 13:58 66 69 130/61 176/71 H 10/26/18 12:25 97.9 F 62 18 10/26/18 11:15 10/26/18 09:16 70 10/26/18 07:30 98.2 F 70 18 BP BP Pulse Ox 10/26/18 16:14 10/26/18 15:52 128/64 97 10/26/18 13:58 10/26/18 12:25 116/61 93 L 10/26/18 11:15 93 L 10/26/18 09:16 10/26/18 07:30 118/58 L 95 Weight Admit Weight 205 lb 12.8 oz Weight 195 lb 3.2 oz I&O: 10/25/18 10/26/18 10/27/18 06:59 06:59 06:59 Intake Total 1630 1520 Output Total 2375 750 0 Balance -745 770 0 Result Diagrams: 10/26/18 04:44 10/26/18 04:44 Additional Labs: Microbiology 10/24/18 08:54 Stool Stool Occult Blood (GIANCARLO) - Final Laboratory Tests 10/21/18 10/21/18 10/22/18 09:08 09:08 06:58 Hgb 7.7 L Creatinine 1.43 H Iron TIBC % Saturation Ferritin B-Natriuretic Peptide 213.0 H 10/22/18 10/23/18 10/23/18 06:58 04:17 04:17 Hgb 7.1 L Creatinine 1.27 H Iron 21 L TIBC 211 L % Saturation 10 L Ferritin 300.85 H B-Natriuretic Peptide 10/23/18 04:17 Hgb 7.4 L Creatinine Iron TIBC % Saturation Ferritin B-Natriuretic Peptide EKG Reviewed by me: Yes (Tele - SR) Hospitalist ROS - Medication Medications: Active Medications Generic Name Dose Route Start Last Admin Trade Name Freq PRN Reason Stop Dose Admin Hydrocodone Bitart/Acetaminophen 1 tab 10/21/18 13:11 10/26/18 11:00 Terrell 5/325 PO 1 tab Q4H PRN Administration Moderate Pain (4-6) Aspirin 81 mg 10/24/18 09:00 10/26/18 09:15 Aspirin Chewable PO 81 mg QAM AUBREY Administration Bisacodyl 10 mg 10/22/18 21:00 10/25/18 20:28 Dulcolax PO 10 mg QPM AUBREY Administration Diphenhydramine HCl 25 mg 10/23/18 10:32 10/26/18 02:43 Benadryl PO 25 mg HSPRN PRN Administration INSOMNIA Docusate Sodium 100 mg 10/23/18 21:00 10/26/18 09:13 Colace PO Not Given BID AUBREY Enoxaparin Sodium 30 mg 10/23/18 09:00 10/26/18 09:10 Lovenox SC 30 mg 0900 AUBREY Administration Famotidine 20 mg 10/22/18 09:00 10/26/18 09:10 Pepcid PO 20 mg DAILY AUBREY Administration Ferrous Sulfate 325 mg 10/24/18 08:00 10/26/18 09:11 Feosol PO 325 mg QAM-WM AUBREY Administration Furosemide 80 mg 10/24/18 09:00 10/26/18 09:12 Lasix PO 80 mg DAILY AUBREY Administration Hydralazine HCl 25 mg 10/24/18 15:00 10/26/18 16:14 Apresoline PO 25 mg TID AUBREY Administration Piperacillin Sod/Tazobactam 100 mls @ 200 mls/hr 10/25/18 12:00 10/26/18 12: 58 Sod 3.375 gm/ Sodium Chloride IVPB 100 mls Q6HR AUBREY Administration Vancomycin HCl 1.5 gm/ Sodium 300 mls @ 150 mls/hr 10/26/18 14:00 10/26/18 14 :42 Chloride IVPB 300 mls 1400 AUBREY Administration Latanoprost 1 drop 10/23/18 21:00 10/25/18 20:27 Xalatan 0.005% Ophth Soln EA EYE 1 drop HS AUBREY Administration Levothyroxine Sodium 25 mcg 10/23/18 06:00 10/26/18 05:25 Synthroid PO 25 mcg 0600 AUBREY Administration Metoprolol Tartrate 50 mg 10/23/18 21:00 10/26/18 09:11 Lopressor PO 50 mg BID AUBREY Administration Nicotine 14 mg 10/21/18 14:00 10/26/18 14:57 Nicoderm Patch TD Not Given Q24HR AUBREY Ondansetron HCl 4 mg 10/21/18 13:11 10/26/18 00:06 Zofran IVP 4 mg Q6H PRN Administration Nausea/Vomiting Pantoprazole Sodium 40 mg 10/24/18 09:00 10/26/18 09:14 Protonix PO 40 mg DAILY AUBREY Administration Psyllium Hydrophilic Mucilloid 1 pk 10/23/18 08:45 10/23/18 15:23 Metamucil PO 1 pk DAILY PRN Administration constipation Quetiapine Fumarate 50 mg 10/22/18 21:00 10/25/18 20:26 Seroquel PO 50 mg HS AUBREY Administration Raloxifene HCl 60 mg 10/24/18 09:00 10/26/18 09:10 Evista PO 60 mg DAILY AUBREY Administration Ropinirole HCl 4 mg 10/25/18 09:00 10/26/18 09:12 Requip PO 4 mg BID AUBREY Administration Tramadol HCl 50 mg 10/23/18 10:25 10/25/18 13:38 Ultram PO 50 mg TID PRN Administration Pain Zolpidem Tartrate 5 mg 10/21/18 13:11 10/22/18 20:23 Ambien PO 5 mg HSPRN PRN Administration Insomnia - Exam General Appearance: NAD, awake alert Eye: PERRL, anicteric sclera ENT: normocephalic atraumatic, no oropharyngeal lesions Neck: supple, symmetric, no JVD, no thyromegaly, no lymphadenopathy Heart: RRR, no gallops, no rubs, normal peripheral pulses Respiratory: CTAB, no tachypnea Respiratory - other findings: diminished in bases Gastrointestinal: soft, non-tender, non-distended, normal bowel sounds, no palpable masses Extremities: 2+ LE edema Skin: normal turgor Neurological: CN's grossly intact, no focal deficits, no new deficit Psychiatric: normal affect, A&O x 3 Hosp A/P (1) Leg edema Code(s): R60.0 - LOCALIZED EDEMA Status: Chronic Plan: chronic multifactorial lymphedema, compression wraps, elevate LE's (2) Iron deficiency anemia Code(s): D50.9 - IRON DEFICIENCY ANEMIA, UNSPECIFIED Status: Chronic Qualifiers: Iron deficiency anemia type: inadequate dietary iron intake Qualified Code( s): D50.8 - Other iron deficiency anemias Plan: Iron supplementation (3) Cellulitis and abscess of leg Code(s): L02.419 - CUTANEOUS ABSCESS OF LIMB, UNSPECIFIED; L03.119 - CELLULITIS OF UNSPECIFIED PART OF LIMB Status: Acute Plan: Transition to po abx in 24h (4) Physical deconditioning Code(s): R53.81 - OTHER MALAISE Status: Chronic - Plan continue antibiotics, PT/OT Stable overall Continue WCT for local care of chronic LE ulcers D/C Norvasc due to LE edema Lasix 80mg daily Start Vancomycin/Zosyn Likely back to [facility] in am
[2018-10-26] MEDS: Bisacodyl 5 MG TAB PO SCH (20:28)
[2018-10-26] MEDS: Latanoprost 0.005% Ophth Soln 2.5 ml Bottle EA EYE SCH (20:29)
[2018-10-27] MEDS: Piperacillin/Tazobactam 3.375 GM in Sodium Chloride 0.9% 100 ML IVPB SCH ×3 (00:32→12:30)
[2018-10-27] MEDS: Levothyroxine Sodium 25 MCG TAB PO SCH (06:19)
[2018-10-27] MEDS: Aspirin Chewable 81 MG TAB PO SCH (09:47)
[2018-10-27] MEDS: Ferrous Sulfate 325 MG TAB PO SCH (09:47)
[2018-10-27] MEDS: hydrALAZINE 25 MG TAB PO SCH ×2 (09:49→15:34)
[2018-10-27] MEDS: Famotidine 20 MG TAB PO SCH (09:49)
[2018-10-27] MEDS: Docusate 100 MG CAP PO SCH (09:49)
[2018-10-27] MEDS: Metoprolol Tartrate 50 MG TAB PO SCH (09:49)
[2018-10-27] MEDS: rOPINIRole HCl 2 MG TAB PO SCH (09:50)
[2018-10-27] MEDS: Enoxaparin Sodium 30 MG/0.3 ML SYRINGE SC SCH (09:53)
[2018-10-27] MEDS: Furosemide 80 MG TAB PO SCH (09:53)
[2018-10-27] MEDS: Vancomycin HCl 1.5 GM in Sodium Chloride 0.9% 250 ML 300 ML IVPB SCH (14:50)
[2018-10-27 15:13] VITALS: BMI 36.8
[2018-10-27 15:56] VITALS: BP 138/67; TEMP 97.9
--- NOTE | 2018-10-27 23:06 | DIS ---
DATE OF ADMISSION: 10/21/2018 DATE OF DISCHARGE: 10/27/2018 DISCHARGE DIAGNOSES: 1. Chronic lower extremity edema, multifactorial including lymphedema and amlodipine. 2. Iron-deficiency anemia, chronic. 3. Cellulitis of bilateral lower extremities due to chronic lymphedema, improved. 4. Right foot hematoma, stable. 5. Physical deconditioning. 6. Hypertension, stable. 7. Chronic kidney disease stage 3. CONSULTATIONS: Dr. Lemos with General Surgery Service. PERTINENT LABORATORY AND X-RAY FINDINGS: Creatinine ranged between 1.18 to 1.66. Estimated GFR ranged between 29 to 43. Serum iron level 21, TIBC 211, ferritin 301. BNP 213. Troponin I negative x3. CBC showed a hemoglobin ranged between 7.1 to 7.9. Stool Hemoccult dated 10/24/2018, negative x1. Portable chest x-ray dated 10/21/2018, showed mild vascular prominence. 2D transthoracic echocardiogram dated 10/22/2018, showed technically limited study. Ejection fraction of 55% to 60%. Moderate elevated pulmonary artery pressure. Lower extremity MRI of the right foot dated 10/25/2018, showed extensive dorsal soft tissue swelling with irregular shaped fluid collection in the dorsal soft tissues consistent with hematoma. No evidence for osteomyelitis. HOSPITAL COURSE: The patient was initially admitted to the telemetry unit after presenting with chest pain and lower extremity edema. The patient with chronic lymphedema, receiving wound care for cellulitis and swelling to the right foot. The patient underwent general evaluation and ruled out for acute coronary syndrome. The patient was given local wound care for her lower extremities with chronic venous stasis changes. The patient was also discontinued on Norvasc due to potential influence with lower extremity edema. The patient continued on Lasix 80 mg daily and monitored for clinical response. No specific evidence of decompensated heart failure during this admission. The patient was evaluated for right foot edema and concern for potential abscess after MRI imaging of the right foot was obtained showing a fluid collection. Fluid collection was determined to be an old hematoma without recommendation for surgical intervention. The patient overall remained clinically stable with supportive management, receiving iron supplementation due to iron deficiency and chronic anemia. The patient overall clinically stabilized with supportive management. I have examined the patient at the time of discharge and discussed followup instructions. The patient verbalized understanding and in agreement, ready for discharge on 10/27/2018. DISCHARGE MEDICATIONS: 1. Enteric-coated aspirin 81 mg p.o. daily. 2. Benadryl 25 mg p.o. at bedtime p.r.n. 3. Docusate sodium 100 mg p.o. b.i.d. 4. Feosol 50 mg p.o. b.i.d. 5. Lasix 80 mg p.o. daily. 6. Lactobacillus 2 tablets p.o. b.i.d. 7. Latanoprost one drop to each eye at bedtime. 8. Levothyroxine 25 mcg p.o. daily. 9. Magnesium oxide 400 mg p.o. daily. 10. Melatonin 5 mg p.o. at bedtime. 11. Metoprolol tartrate 50 mg p.o. b.i.d. 12. Protonix 40 mg p.o. daily. 13. Klor-Con 10 mEq p.o. daily. 14. Seroquel 50 mg p.o. at bedtime. 15. Raloxifene 60 mg p.o. daily. 16. Ropinirole 4 mg p.o. b.i.d. 17. Tramadol 50 mg p.o. t.i.d. p.r.n. 18. Augmentin 500 mg p.o. b.i.d. x7 days. 19. Hydralazine 25 mg p.o. t.i.d. 20. Lamisil apply topically daily p.r.n. FOLLOWUP: The patient may follow up with Dr. Leti Monte within 7 days of discharge. CONDITION ON DISCHARGE: Fair. ACTIVITY: Ad mayur, rolling walker with contact guard assistance. SPECIAL INSTRUCTIONS: Local wound care for chronic venous stasis and ulceration to the bilateral lower extremities. Avoid straps and weights to the lower extremity due to skin breakdown. DIET: Heart healthy. CODE STATUS: Full. DISPOSITION: Discharged to [facility] on 10/27/2018. TIME SPENT: Total time preparing and coordinating discharge, 35 minutes. Job ID: [id number]
== END 2018-10-27 15:40 | DRG 603 ==
LOC: ERS 08:47 → ERHOLD 12:34 → OBSVTOIN 13:34 → 2NO 17:59
PROVIDERS: ADMIT Internal Medicine; ATTEND Internal Medicine
DX: L03.116 Cellulitis of left lower limb (principal); I42.9 Cardiomyopathy, unspecified; I13.0 Hypertensive heart and chronic kidney disease with heart failure and stage 1 through stage 4 chronic kidney disease, or unspecified chronic kidney disease; I89.0 Lymphedema, not elsewhere classified; L03.115 Cellulitis of right lower limb; D50.9 Iron deficiency anemia, unspecified; E66.9 Obesity, unspecified; M79.81 Nontraumatic hematoma of soft tissue; I50.9 Heart failure, unspecified; I87.2 Venous insufficiency (chronic) (peripheral); T50.995A Adverse effect of other drugs, medicaments and biological substances, initial encounter; N18.3 Chronic kidney disease, stage 3 (moderate); E78.5 Hyperlipidemia, unspecified; Z68.36 Body mass index [BMI] 36.0-36.9, adult
CPT/HCPCS: 36415; 71045; 80048; 80202; 82274; 82728; 83540; 83550; 83690; 83880; 84484; 85007; 85025; 85027; 93005; 93306; J1650; J1756; J2405; J2543; J2916; J3370; J3490; J7050; Q0163